=== PATIENT | male | born 1955 | race Caucasian/White ===

== ENCOUNTER 2020-10-06 06:52 | Day surgery (SDC) | payer OTHER ==
[~2020-10-06] VITALS: Ht 188 cm; Wt 82.5 kg
[2020-10-06] MEDS ORDERED: CHLORHEXIDINE 15 ML UDC ONE (07:55)
[2020-10-06 08:00] VITALS: BP 128/86
[2020-10-06] MEDS ORDERED: CHLORHEXIDINE 15 ML UDC PO ONE (08:00)
[2020-10-06] MEDS ORDERED: LACTATED RINGERS 1,000 ML IV SCH (08:00)
[2020-10-06 08:06] LABS: BASOPHILS % (AUTO) 1 % (0-1); EOSINOPHILS % (AUTO) 4 % (1-7); LYMPHOCYTES % (AUTO) 8 % (22-44); MEAN CORPUSCULAR HEMOGLOBIN 31.5 pg (27.5-34.5); MEAN CORPUSCULAR HGB CONC 33.2 g/dL (33.2-36.2); MEAN PLATELET VOLUME 7.9 fL (7.4-10.4); MONOCYTES % (AUTO) 17 % (2-9); NEUTROPHILS % (AUTO) 71 % (42-75); PLATELET COUNT 190 x10^3/uL (130-400); RED BLOOD COUNT 5.16 x10^6/uL (4.38-5.82); RED CELL DISTRIBUTION WIDTH 14.6 % (9.4-14.8)
[2020-10-06 08:14] LABS: INTERNATIONAL NORMALIZED RATIO 1.08 (0.93-1.1); PROTHROMBIN TIME 11.5 Seconds (9.6-11.5)
[2020-10-06 08:15] LABS: ALANINE AMINOTRANSFERASE 42 U/L (12-78); ALBUMIN 3.3 g/dL (3.4-5.0); ANION GAP 6 mmol/L (5-15); CHLORIDE 98 mmol/L (98-107); CREATININE 0.65 mg/dL (0.7-1.3)
[2020-10-06 08:17] LABS: ALKALINE PHOSPHATASE 115 U/L (45-117); BILIRUBIN,TOTAL 0.6 mg/dL (0.2-1.0); TOTAL PROTEIN 7.6 g/dL (6.4-8.2)
[2020-10-06] MEDS ORDERED: NICO-430 TP (08:22)
[2020-10-06] MEDS ORDERED: Albuterol INH (08:22)
[2020-10-06] MEDS ORDERED: MULT-464 PO (08:22)
[2020-10-06] MEDS ORDERED: PLEASE ENTER ALLERGIES MC SCH (08:30)
[2020-10-06] MEDS ORDERED: MIDAZOLAM 1 MG/ML, 2ML ONE (09:25)
[2020-10-06] MEDS ORDERED: FENTANYL PF 100 MCG/2ML ONE (09:25)
[2020-10-06] MEDS ORDERED: SUCCINYLCHOLINE 20 MG/ML, 10ML ONE (09:33)
[2020-10-06] MEDS ORDERED: GLYCOPYRROLATE 0.2MG/1ML, 5ML ONE (09:33)
[2020-10-06] MEDS ORDERED: DEXAMETHASONE 4 MG/ML, 1ML ONE (09:33)
[2020-10-06] MEDS ORDERED: PHENYLEPHRINE 10 MG/ML ONE (09:33)
[2020-10-06] MEDS ORDERED: ROCURONIUM 10 MG/ML,10ML ONE (09:33)
[2020-10-06] MEDS ORDERED: NEOSTIGMINE 1 MG/ML, 10ML ONE (09:33)
[2020-10-06] MEDS ORDERED: ONDANSETRON 2MG/ML, 2ML ONE (09:33)
[2020-10-06] MEDS ORDERED: VASOPRESSIN 20 UNIT/ML, 1ML ONE (09:33)
[2020-10-06] MEDS ORDERED: PROPOFOL 50 ML ONE ×2 (09:40→10:09)
[2020-10-06] MEDS ORDERED: PROMETHAZINE 25 MG/ML, 1ML IVPush PRN (10:00)
[2020-10-06] MEDS ORDERED: ONDANSETRON 2MG/ML, 2ML IVPush PRN (10:00)
[2020-10-06] MEDS ORDERED: MEPERIDINE/PF 25MG/0.5ML IVPush PRN (10:00)
[2020-10-06] MEDS ORDERED: HYDROcodone/APAP 7.5-325MG/15ML UDC PO PRN (10:00)
[2020-10-06] MEDS ORDERED: FENTANYL PF 100 MCG/2ML IV PRN (10:00)
[2020-10-06] MEDS ORDERED: HYDROmorphone 1 MG/ML, 1ML INJ IVPush PRN (10:00)
[2020-10-06] MEDS ORDERED: OXYcodone 5 MG/5 ML ORAL.SOL UDC PO PRN (10:00)
== END 2020-10-06 14:35 | disposition home or self-care (01) ==
LOC: OUT 06:52
PROVIDERS: ATTEND Internal Medicine Critical Care Medicine
DX: R59.0 Localized enlarged lymph nodes (principal); C77.1 Secondary and unspecified malignant neoplasm of intrathoracic lymph nodes; J90 Pleural effusion, not elsewhere classified; E78.5 Hyperlipidemia, unspecified; F17.210 Nicotine dependence, cigarettes, uncomplicated; Z20.822 Contact with and (suspected) exposure to COVID-19; Z79.01 Long term (current) use of anticoagulants; Z79.899 Other long term (current) drug therapy; Z99.81 Dependence on supplemental oxygen
CPT/HCPCS: 31653; 36415; 71045; 80053; 85025; 85610; 85730; 87635; 88172; 88173; 88305; 93005; J0330; J1100; J2250; J2370; J2405; J2704; J2710; J3010; J7120

== ENCOUNTER → 2020-11-12 | Outpatient (CLI) | payer OTHER ==
[~2020-11-12] MED LIST: Albuterol INH; LIDOCAINE-MPF 1%, 5ML ONE; MULT-464 PO; NICO-430 TP; TRELEGY INH; VITAMIN B12 PO
== END | disposition home or self-care (01) ==
LOC: RAD 14:06
PROVIDERS: ATTEND Internal Medicine
DX: J90 Pleural effusion, not elsewhere classified (principal); C34.11 Malignant neoplasm of upper lobe, right bronchus or lung
CPT/HCPCS: 32555

== ENCOUNTER 2020-11-14 10:17 | Outpatient (CLI) | payer OTHER ==
[~2020-11-14 10:17] MED LIST changes: -LIDOCAINE-MPF 1%, 5ML ONE; -TRELEGY INH; -VITAMIN B12 PO
[2020-11-14] MEDS ORDERED: OMNIPAQUE 350 MG/ML, 100ML BOTTLE ONE (14:16)
== END 2020-11-14 23:59 | disposition home or self-care (01) ==
LOC: CFH 10:17
PROVIDERS: ATTEND Internal Medicine
DX: C34.11 Malignant neoplasm of upper lobe, right bronchus or lung (principal); J32.0 Chronic maxillary sinusitis
CPT/HCPCS: 70460; Q9967

== ENCOUNTER 2020-11-17 09:27 | Day surgery (SDC) | payer OTHER ==
[~2020-11-17] VITALS: Ht 185.4 cm; Wt 82.4 kg
[2020-11-17 10:14] VITALS: BP 130/84
[2020-11-17] MEDS ORDERED: VITAMIN B12 PO (10:14)
[2020-11-17] MEDS ORDERED: TRELEGY INH (10:14)
[2020-11-17] MEDS ORDERED: LACTATED RINGERS 1,000 ML IV SCH (10:30)
[2020-11-17] MEDS ORDERED: CEFAZOLIN PMX 1GM/50ML 50 ML IV ONE (10:30)
[2020-11-17] MEDS ORDERED: LIDOCAINE 1%, 20ML ONE (10:33)
[2020-11-17] MEDS ORDERED: LIDOCAINE 1%, 10ML ONE (10:33)
[2020-11-17] MEDS ORDERED: SODIUM CHLORIDE 0.9% 1,000 ML IV SCH (11:00)
[2020-11-17] MEDS ORDERED: FLUMAZENIL 0.1 MG/1 ML, 5ML ONE (11:26)
[2020-11-17] MEDS ORDERED: NALOXONE 1 MG/ML, 2ML ONE (11:26)
[2020-11-17] MEDS ORDERED: MIDAZOLAM 1 MG/ML, 5ML ONE (11:26)
[2020-11-17] MEDS ORDERED: FENTANYL PF 100 MCG/2ML ONE (11:26)
== END 2020-11-17 12:45 | disposition home or self-care (01) ==
LOC: RAD 09:27
PROVIDERS: ATTEND Internal Medicine
DX: C34.11 Malignant neoplasm of upper lobe, right bronchus or lung (principal); F17.210 Nicotine dependence, cigarettes, uncomplicated; Z99.81 Dependence on supplemental oxygen; Z83.6 Family history of other diseases of the respiratory system
CPT/HCPCS: 36573; C1751; J0690; J1642; J2250; J3010; J7030; J2310

== ENCOUNTER 2020-11-19 08:57 | Day surgery (SDC) | payer OTHER ==
[~2020-11-19] VITALS: Ht 185.4 cm; Wt 82.6 kg
[~2020-11-19 08:57] MED LIST changes: +TRELEGY INH; +VITAMIN B12 PO
[2020-11-19 09:48] VITALS: BP 122/84
[2020-11-19] MEDS ORDERED: NALOXONE 1 MG/ML, 2ML ONE (11:01)
[2020-11-19] MEDS ORDERED: MIDAZOLAM 1 MG/ML, 5ML ONE ×2 (11:01)
[2020-11-19] MEDS ORDERED: FENTANYL PF 100 MCG/2ML ONE (11:01)
[2020-11-19] MEDS ORDERED: FLUMAZENIL 0.1 MG/1 ML, 5ML ONE (11:01)
[2020-11-19] MEDS ORDERED: LIDOCAINE 1%, 20ML ONE (11:03)
[2020-11-19] MEDS ORDERED: LIDOCAINE 1%, 10ML ONE (11:40)
== END 2020-11-19 13:50 | disposition home or self-care (01) ==
LOC: OUT 08:57 → EDSTATUS 11:00 → OUT 13:50
PROVIDERS: ATTEND Internal Medicine
DX: C34.11 Malignant neoplasm of upper lobe, right bronchus or lung (principal); C77.0 Secondary and unspecified malignant neoplasm of lymph nodes of head, face and neck; J91.0 Malignant pleural effusion; I10 Essential (primary) hypertension; F17.210 Nicotine dependence, cigarettes, uncomplicated; Z79.899 Other long term (current) drug therapy; Z88.8 Allergy status to other drugs, medicaments and biological substances; Z83.6 Family history of other diseases of the respiratory system
CPT/HCPCS: 32550; 38505; 76942; 88305; 99156; 99157; J2250; J3010; J2310

== ENCOUNTER → 2021-01-09 | Outpatient (CLI) | payer OTHER | END | disposition home or self-care (01) | LOC: RAD 14:46 | PROVIDERS: ATTEND Internal Medicine | DX: C34.11 Malignant neoplasm of upper lobe, right bronchus or lung (principal); R22.42 Localized swelling, mass and lump, left lower limb ==